=== PATIENT | female | born 1965 | race Two or more races ===

== ENCOUNTER 2017-06-21 12:45 | Emergency (ER) | payer BC ==
[~2017-06-21] VITALS: Ht 170.2 cm; Wt 68.0 kg
[2017-06-21 13:03] VITALS: BP 115/76
== END 2017-06-21 14:26 | disposition home or self-care (01) ==
LOC: ER 12:50
DX: B34.9 Viral infection, unspecified (principal); J06.9 Acute upper respiratory infection, unspecified
CPT/HCPCS: 99283; A4606; Z7610

== ENCOUNTER → 2020-12-22 | Emergency (ER) | payer BC, MEDICAID ==
[~2020-12-22] VITALS: Ht 172.7 cm; Wt 72.6 kg
[~2020-12-22] MED LIST: NITR100C6 PO
--- NOTE | 2020-12-22 02:20 | NUR ---
Salazar coto in [facility] - 12/22/20 at 0329 by BOYD URINE COLLECTED AND SENT TO LAB
--- NOTE | 2020-12-22 02:45 | NUR ---
BIB DAUGHTER WITH C/O PAIN WHEN URINATING. PT IS AAO X 4, BREATHING EVEN AND UNLABORED. PT WAS SEEN AND EXAMINED BY DR AGGARWAL. PT ATTACHED TO MONITOR AND PULSE OX. WILL CONTINUE TO MONITOR AND CARRY OUT MD ORDERS.
--- NOTE | 2020-12-22 02:50 | NUR ---
URINE COLLECTED AND SENT TO LAB
[2020-12-22 03:26] LABS: BILIRUBIN,URINE Negative (NEGATIVE); COLOR,URINE LIGHT YELLOW (YELLOW); LEUKOCYTE ESTERASE ,URINE Moderate (NEGATIVE); NITRITE, URINE Negative (NEGATIVE); PH,URINE 6.5 (5.0-8.0); PROTEIN,URINE Negative (NEGATIVE); UGLUCOSE Negative (NEGATIVE); UROBILINOGEN,URINE 0.2 EU/dL (0.2)
--- NOTE | 2020-12-22 03:33 | NUR ---
Patient discharged to home in stable condition. Written and verbal after care instructions given. Patient verbalizes understanding of instruction. Patient ambulatory with a steady gait
[2020-12-22 03:40] LABS: BACTERIA,URINE Few /HPF (None Seen); RBC,URINE 0-2 /HPF (0-2); SQUAMOUS EPITHELIAL CELL,UR Few /HPF (None Seen); WBC,URINE 21-50 /HPF (0-3)
[2020-12-22 03:44] VITALS: BP 143/82
== END ==
LOC: ER 01:41
DX: N39.0 Urinary tract infection, site not specified (principal); Z79.899 Other long term (current) drug therapy
CPT/HCPCS: 81001; 87086-TC; 87186-TC

== ENCOUNTER 2021-05-30 23:39 | Emergency (ER) | payer MEDICAID ==
[~2021-05-30] VITALS: Ht 172.7 cm; Wt 72.6 kg
--- NOTE | 2021-05-31 | NUR ---
URINE COLLECTED AND SENT TO LAB
--- NOTE | 2021-05-31 | NUR ---
BIBDAUGHTER C/O PAIN WITH URINATION, STARTED THIS AFTERNOON. Hx OF UTI. PT A/OX3.
[2021-05-31 00:07] LABS: BILIRUBIN,URINE NEGATIVE (NEGATIVE); COLOR,URINE YELLOW (YELLOW); LEUKOCYTE ESTERASE ,URINE MODERATE (NEGATIVE); NITRITE, URINE POSITIVE (NEGATIVE); PH,URINE 5.5 (5.0-8.0); PROTEIN,URINE NEGATIVE (NEGATIVE); UGLUCOSE NEGATIVE (NEGATIVE); UROBILINOGEN,URINE 0.2 EU/dL (0.2)
[2021-05-31] MEDS ORDERED: NITR100C6 PO (00:22)
[2021-05-31 00:25] VITALS: BP 125/67
--- NOTE | 2021-05-31 00:25 | NUR ---
Patient discharged to home in stable condition. RX Written and verbal after care instructions given. Patient verbalizes understanding of instruction. PT ambulatory with a steady gait
[2021-05-31 08:19] LABS: BACTERIA,URINE 1+ /HPF (None Seen); WBC,URINE 21-50 /HPF (0-3)
[2021-05-31 08:21] LABS: SQUAMOUS EPITHELIAL CELL,UR Rare /HPF (None Seen)
== END 2021-05-31 00:34 | disposition home or self-care (01) ==
LOC: ER 23:39
DX: N39.0 Urinary tract infection, site not specified (principal); Z79.899 Other long term (current) drug therapy
CPT/HCPCS: 81001; 87086-TC; 87186-TC

== ENCOUNTER 2023-08-28 17:31 | Emergency (ER) | payer MEDICAID ==
[~2023-08-28] VITALS: Ht 162.6 cm; Wt 74.8 kg
[2023-08-28 17:39] VITALS: BP 125/79; TEMP 97.8; O2SAT 100
[2023-08-28] MEDS ORDERED: CIPR7.5D9 EACH EAR (18:35)
== END 2023-08-28 18:49 | disposition home or self-care (01) ==
LOC: ER 17:36
DX: T16.1XXA Foreign body in right ear, initial encounter (principal); W44.8XXA Other foreign body entering into or through a natural orifice, initial encounter; Y93.89 Activity, other specified; Y92.89 Other specified places as the place of occurrence of the external cause; Y99.8 Other external cause status